=== PATIENT | male | born 1960 | race Caucasian/White ===

== ENCOUNTER 2019-02-17 11:27 | Emergency (ER) | payer SELFPAY ==
[2019-02-17 11:53] VITALS: BP 137/75
--- NOTE | 2019-02-17 12:28 | UC ---
Skin Complaint HPI - HPI Summary HPI Summary: Pt presents with c/o of gradual onset of painful "lump" in right axilla that began on 02/15/19. Pt works outside and thought he was "bit by something". Pt states pain has worsened over the last 24 hours. - History of Current Complaint Chief Complaint: UCSkin Time Seen by Provider: 02/17/19 11:48 Stated Complaint: SKIN COMPLAINT Hx Obtained From: Patient Onset/Duration: Gradual Onset, Still Present, Worse Since - onset Skin Exposure Onset/Duration: Days Ago - 2 Onset Severity: Mild Current Severity: Severe Pain Intensity: 10 Location: Discrete - right axilla Character: Redness, Raised, Painful Aggravating Factor(s): Touch Alleviating Factor(s): Nothing Associated Signs & Symptoms: Positive: Tenderness Related History: Insect Bite/Sting - Allergy/Home Medications Allergies/Adverse Reactions: Allergies Allergy/AdvReac Type Severity Reaction Status Date / Time aspirin Allergy See Comment Verified 02/17/19 11:42 PMH/Surg Hx/FS Hx/Imm Hx Previously Healthy: Yes - Surgical History Surgical History: Yes Surgery Procedure, Year, and Place: 2017 BACK SURGERY- SPINAL FUSION/RODS/ SCREWS. [facility] - Family History Known Family History: Positive: Cardiac Disease - Social History Occupation: Employed Full-time Lives: With Family Alcohol Use: Rare Substance Use Type: None Smoking Status (MU): Light Every Day Tobacco Smoker Type: Cigarettes Amount Used/How Often: 1/2 PPD Have You Smoked in the Last Year: Yes Review of Systems All Other Systems Reviewed And Are Negative: Yes Constitutional: Positive: Negative Skin: Positive: Other - tender mass in right axilla, with darkened center Eyes: Positive: Negative ENT: Positive: Negative Respiratory: Positive: Negative Cardiovascular: Positive: Negative Gastrointestinal: Positive: Negative Genitourinary: Positive: Negative Motor: Positive: Negative Neurovascular: Positive: Negative Musculoskeletal: Positive: Negative Neurological: Positive: Negative Psychological: Positive: Negative Is Patient Immunocompromised?: No Physical Exam Triage Information Reviewed: Yes Appearance: Pain Distress - with examination of tender mass Vital Signs: Initial Vital Signs Temp 98.3 F 02/17/19 11:43 Pulse 62 02/17/19 11:43 Resp 16 02/17/19 11:43 BP 137/75 02/17/19 11:43 Pulse Ox 98 02/17/19 11:43 Vital Signs Reviewed: Yes Eye Exam: Normal ENT: Positive: Hearing grossly normal Neck exam: Normal Respiratory: Positive: No respiratory distress Musculoskeletal Exam: Normal Neurological Exam: Normal Psychological Exam: Normal Skin Exam: Other - hard, tender lump in center of right axilla, clear drainage, darkened center, ~ diamater 2 cm. Course/Dx - Differential Diagnoses - Skin Complaint Differential Diagnoses: Abscess, MRSA, Tick Born Illness - Diagnoses Provider Diagnosis: Abscess of axilla, right Discharge - Sign-Out/Discharge Documenting (check all that apply): Patient Departure All imaging exams completed and their final reports reviewed: No Studies - Discharge Plan Condition: Stable Disposition: HOME Prescriptions: DOXYcycline CAP(*) [DOXYcycline 100MG CAP(*)] 100 mg PO Q12H #20 cap Patient Education Materials: Insect Bite or Sting (ED), Abscess (ED) Referrals: [facility] [Outside] - If Needed No Primary Care Phys,NOPCP [Primary Care Provider] - - Billing Disposition and Condition Condition: STABLE Disposition: Home
--- NOTE | 2019-02-20 09:42 | UC ---
- Progress Note Progress Note: Right axilla incision and drainage culture and sensitivity comes back from February 17, 2019. Comes back staph aureus positive MRSA negative. It does show resistance to tetracycline it does not have a susceptibilities specifically for doxycycline. Nursing to call patient if the patient continues to improve there is no need to change the antibiotic hours or not improving will need to change the antibiotic to either Keflex or Augmentin or clindamycin which are all susceptible. Course/Dx - Diagnoses Provider Diagnoses: Abscess of axilla, right Discharge - Sign-Out/Discharge Documenting (check all that apply): Patient Departure All imaging exams completed and their final reports reviewed: No Studies - Discharge Plan Condition: Stable Disposition: HOME Prescriptions: DOXYcycline CAP(*) [DOXYcycline 100MG CAP(*)] 100 mg PO Q12H #20 cap Patient Education Materials: Insect Bite or Sting (ED), Abscess (ED) Referrals: [facility] [place] [facility] [Outside] - If Needed No Primary Care Phys,NOPCP [Primary Care Provider] - - Billing Disposition and Condition Condition: STABLE Disposition: Home
== END 2019-02-17 12:28 | disposition home or self-care (01) ==
LOC: UCCORT 11:27
DX: L02.411 Cutaneous abscess of right axilla (principal); F17.210 Nicotine dependence, cigarettes, uncomplicated
CPT/HCPCS: 87070; 87077; 87186; 87205; 87640; 87641; 99202; G0463